=== PATIENT | female | born 1970 | race Caucasian/White ===

== ENCOUNTER → 2022-08-26 | Outpatient (CLI) | payer OTHER ==
[~2022-08-26] MED LIST: BACTRIM DS 8001 TA1 PO; CORTISPORIN SUS10 ML OT; FLEXERIL10 MG PO; HYDROCODONE BIT1 T11 PO; MOTRIN800 MG PO; NAPROSYN500 MG PO; NORCO 325 MG-51 TAB PO
[2022-08-26 17:52] LABS: BUN 6 mg/dl (9-23)
== END | disposition home or self-care (01) ==
LOC: LAB 17:10
PROVIDERS: ATTEND Specialist
DX: H90.3 Sensorineural hearing loss, bilateral (principal)

== ENCOUNTER → 2022-08-29 | Outpatient (CLI) | payer OTHER | END | disposition home or self-care (01) | LOC: MRI 00:41 | PROVIDERS: ATTEND Specialist | DX: H90.3 Sensorineural hearing loss, bilateral (principal) ==

== ENCOUNTER 2024-06-19 08:39 | Emergency (ER) | payer OTHER ==
[~2024-06-19] VITALS: Wt 50.8 kg
[2024-06-19] MEDS ORDERED: HYDROCODONE-AC1 EAC1 PO (12:01)
== END 2024-06-19 13:31 | disposition home or self-care (01) ==
LOC: ED 08:39
DX: S22.32XA Fracture of one rib, left side, initial encounter for closed fracture (principal); W18.39XA Other fall on same level, initial encounter; Y93.89 Activity, other specified; Y92.098 Other place in other non-institutional residence as the place of occurrence of the external cause; Y99.8 Other external cause status